=== PATIENT | female | born 1980 | race Caucasian/White ===

== ENCOUNTER 2018-10-08 07:32 | Day surgery (SDC) | payer MEDICARE, OTHER ==
[2018-10-08] MEDS ORDERED: PROPOFOL 200 MG/20 ML VIAL IV ONE (08:48)
[2018-10-08] MEDS ORDERED: KETAMINE HCL 10 MG/ML ML IJ ONE (08:48)
[2018-10-08] MEDS ORDERED: LACTATED RINGERS 1,000 ML IV.SOLN IV ONE (08:48)
[2018-10-08] MEDS ORDERED: LIDOCAINE HCL 1%/EPI. (1:100,000) MDV 20ML VIAL IJ ONE (08:48)
[2018-10-08] MEDS ORDERED: fentaNYL CITRATE/PF 100 MCG/2 ML INJ. ONE ×3 (08:48→10:36)
[2018-10-08] MEDS ORDERED: ceFAZolin SODIUM 1 GM VIAL ONE (08:48)
[2018-10-08] MEDS ORDERED: NORMAL SALINE 1,000 ML IV.SOLN IV ONE (08:48)
[2018-10-08] MEDS ORDERED: MIDAZOLAM HCL 2 MG/2 ML VIAL ONE (08:48)
[2018-10-08] MEDS ORDERED: LIDOCAINE HCL 2% PF 100MG/5ML VIAL IJ ONE (08:48)
[2018-10-08] MEDS ORDERED: HYDROcodone /APAP 10/325 1 EACH TABLET PO ONE (11:20)
== END 2018-10-08 11:45 | disposition home or self-care (01) ==
LOC: OPSURG 07:32
PROVIDERS: ATTEND Physical Medicine & Rehabilitation
DX: M54.5 Low back pain (principal); M79.604 Pain in right leg; M79.605 Pain in left leg
CPT/HCPCS: 63650; 63685; J0690; J1815; J2001; J2250; J2704; J3010; J7030; J7120

== ENCOUNTER 2019-05-06 09:09 | Day surgery (SDC) | payer MEDICARE, OTHER ==
[~2019-05-06 09:09] MED LIST: HYDROcodone /APAP 10/325 1 EACH TABLET PO ONE; LACTATED RINGERS 1,000 ML IV.SOLN IV ONE; MIDAZOLAM HCL 2 MG/2 ML VIAL ONE; fentaNYL CITRATE/PF 100 MCG/2 ML INJ. ONE
[2019-05-06] MEDS ORDERED: HYDROcodone /APAP 10/325 1 EACH TABLET PO ONE (12:06)
== END 2019-05-06 12:40 | disposition home or self-care (01) ==
LOC: OPSURG 09:09
PROVIDERS: ATTEND Physical Medicine & Rehabilitation
DX: M47.817 Spondylosis without myelopathy or radiculopathy, lumbosacral region (principal); M46.1 Sacroiliitis, not elsewhere classified
CPT/HCPCS: 64635; 64640; J2250; J3010; J7120